=== PATIENT | male | born 1955 | race Caucasian/White ===

== ENCOUNTER 2019-07-23 10:52 | Emergency (ER) | payer MEDICARE ==
[2019-07-23] MEDS ORDERED: Dexamethasone 10 MG/ML SDV IM ONE (11:20)
--- NOTE | 2019-07-23 11:25 | EDM.PDOC ---
ED HPI GENERAL MEDICAL PROBLEM - General Chief Complaint: ENT Problem Stated Complaint: FB STUCK IN THROAT Time Seen by Provider: 07/23/19 11:03 Source of Information: Reports: Patient, RN Notes Reviewed History Limitations: Reports: No Limitations - History of Present Illness INITIAL COMMENTS - FREE TEXT/NARRATIVE: Patient is a 64-year-old male who presents to the ED for the evaluation of a foreign body sensation of the back of his throat. The patient states that he had beef tips last night, but does not remember any sort of choking incidences. He has not had this issue before ever. He states that he awoke at 2 AM this morning, and felt like he was gagging, or had this foreign body sensation in his throat since. He says when he coughs or breathes really hard, he can feel a mass or the sensation on the back of his tongue. Patient feels he is mildly nauseous, but has been able to drink fluids, he has not tried to eat anything since then. Patient states that he was able to take his pills this morning okay. His primary care provider is Dre Tovar. Patient denies any other sick-like symptoms, increased shortness of breath, cough, fever/chills, chest pain, vomiting or diarrhea. Throat Pain Score (Numeric/FACES): 1 - Related Data Allergies Allergy/AdvReac Type Severity Reaction Status Date / Time No Known Allergies Allergy Verified 07/23/19 11:01 Home Meds: Home Meds atenoloL [Atenolol] 25 mg PO DAILY 07/23/19 [History] atorvaSTATin [Lipitor] 20 mg PO DAILY 07/23/19 [History] glipiZIDE [Glipizide ER] 10 mg PO DAILY 07/23/19 [History] lisinopriL [Lisinopril] 20 mg PO DAILY 07/23/19 [History] metFORMIN [Glucophage XR] 1,000 mg PO BID 07/23/19 [History] Past Medical History Cardiovascular History: Reports: High Cholesterol, Hypertension Genitourinary History: Reports: Prostate Disorder Musculoskeletal History: Reports: Other (See Below) Other Musculoskeletal History: 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 ED EXAM, ENT - Physical Exam Exam: See Below Exam Limited By: No Limitations General Appearance: Alert, WD/WN, No Apparent Distress Eye Exam: Bilateral Eye: EOMI, Normal Inspection, PERRL Ears: Normal External Exam Nose: Normal Inspection Mouth/Throat: Normal Inspection, Normal Gums, Normal Lips, Normal Oropharynx, Normal Teeth, Uvular Edema (When the patient cleared his throat on examination, the uvula was sitting on the base of the tongue, and he states this was the mass or sensation he was feeling. The uvula does appear slightly swollen, or edematous.) Head: Atraumatic, Normocephalic Neck: Normal Inspection, Supple, Non-Tender, Full Range of Motion Respiratory/Chest: No Respiratory Distress, Lungs Clear, Normal Breath Sounds, No Accessory Muscle Use, Chest Non-Tender Cardiovascular: Normal Peripheral Pulses, Regular Rate, Rhythm, No Murmur GI/Abdominal: Normal Bowel Sounds, Soft, Non-Tender, No Distention, No Mass Extremities: Normal Inspection, Normal Capillary Refill Neurological: Alert, Oriented, Normal Cognition, No Motor/Sensory Deficits Psychiatric: Normal Affect, Normal Mood Skin: Warm, Dry, Intact, Normal Color, No Rash Course - Vital Signs Last Recorded V/S: Last Vital Signs Temp 97.7 F 07/23/19 11:02 Pulse 80 07/23/19 11:02 Resp 16 07/23/19 11:02 BP 157/104 H 07/23/19 11:02 Pulse Ox 98 07/23/19 11:02 - Orders/Labs/Meds Orders: Active Orders 24 hr Category Date Time Status Communication Order [RC] ROUTINE Care 07/23/19 11:37 Ordered Meds: Medications Discontinued Medications Generic Name Dose Route Start Last Admin Trade Name Bib PRN Reason Stop Dose Admin Dexamethasone 10 mg 07/23/19 11:20 07/23/19 11:37 Dexamethasone IM 07/23/19 11:21 10 mg ONETIME ONE Administration Diphenhydramine HCl 25 mg 07/23/19 12:13 07/23/19 12:16 Benadryl PO 07/23/19 12:14 25 mg ONETIME ONE Administration Famotidine 20 mg 07/23/19 12:18 07/23/19 12:58 Pepcid PO 07/23/19 12:19 20 mg ONETIME ONE Administration - Re-Assessments/Exams Free Text/Narrative Re-Assessment/Exam: 07/23/19 11:24 The patient presents to the ED for evaluation of a foreign body sensation in the back of his throat. Does appear that he has some uvular swelling or edema. Patient denied any sort of food allergies or other allergies, or eating anything that he does not normally eat. Will give the gentleman a 10 mg IM injection of dexamethasone, observe him in the ER, try to get him to eat something before he leaves, and likely discharge home with general recommendations. 07/23/19 12:17 Patient will be ordered lunch, he states that the uvula still feels quite swollen, did discuss options with Dr. Andino regarding treatment, and he recommends trying some Benadryl and famotidine to help relieve some the swelling initially. I have ordered the Benadryl and famotidine. Departure - Departure Time of Disposition: 13:41 Disposition: Home, Self-Care 01 Condition: Good Clinical Impression: Swollen uvula - Discharge Information *PRESCRIPTION DRUG MONITORING PROGRAM REVIEWED*: No *COPY OF PRESCRIPTION DRUG MONITORING REPORT IN PATIENT EMILIE: No Referrals: Dre Figueroa MD [Primary Care Provider] - Forms: ED Department Discharge Additional Instructions: You were evaluated in ER today regarding your foreign body sensation in the back of your throat. On physical examination, it was made apparent that this was your uvula, that appeared to be swollen, and when you cleared your throat it ended up sitting on the back your tongue causing you some nausea and the foreign body sensation. You were given a one-time IM injection of dexamethasone, oral Benadryl, and oral Pepcid. As these all can help relieve swelling. Over the weekend, you may want to stick to more of a soft type diet, to make sure that you can still swallow foods correctly, and create no further issues. You may try 600 mg ibuprofen every 6 hours as needed for further swelling relief , do not exceed 3200 mg in a 24-hour time span. If the Benadryl seems to help relieve some the swelling, you may also take 1 tablet of Benadryl every 4-6 hours as needed for swelling relief as well. Please return to the ER at any time if symptoms should change or worsen. Sepsis Event Note - Evaluation Sepsis Screening Result: No Definite Risk - Focused Exam Vital Signs: Vital Signs Temp Pulse Resp BP Pulse Ox 07/23/19 11:02 97.7 F 80 16 157/104 H 98 Date Exam was Performed: 07/23/19 Time Exam was Performed: 13:41 - My Orders Last 24 Hours: My Active Orders 07/23/19 11:37 Communication Order [RC] ROUTINE - Assessment/Plan Last 24 Hours: My Active Orders 07/23/19 11:37 Communication Order [RC] ROUTINE
[2019-07-23] MEDS ORDERED: diphenhydrAMINE 25 MG Cap PO ONE (12:13)
[2019-07-23] MEDS ORDERED: Famotidine 20 MG Tab PO ONE (12:18)
== END 2019-07-23 14:22 | disposition home or self-care (01) ==
LOC: JD.ED 10:52
DX: J39.2 Other diseases of pharynx (principal); E78.00 Pure hypercholesterolemia, unspecified; I10 Essential (primary) hypertension; E11.9 Type 2 diabetes mellitus without complications; Z79.84 Long term (current) use of oral hypoglycemic drugs; Z79.899 Other long term (current) drug therapy
CPT/HCPCS: 96372; 99283; A9270; J1100

== ENCOUNTER 2020-02-07 09:21 | Emergency (ER) | payer MEDICARE ==
[2020-02-07] MEDS ORDERED: Oxymetazoline 0.05% Nasal Spray 30 ML Bottle NASLF ONE (11:06)
--- NOTE | 2020-02-07 11:15 | EDM.PDOC ---
ED HPI GENERAL MEDICAL PROBLEM - General Chief Complaint: ENT Problem Stated Complaint: NOSE BLEED Time Seen by Provider: 02/07/20 11:02 Source of Information: Reports: Patient, RN Notes Reviewed History Limitations: Reports: No Limitations - History of Present Illness INITIAL COMMENTS - FREE TEXT/NARRATIVE: Patient is a 64 year old male presenting to the ER with c/o a left sided nose bleed that started around 0730 this morning. He states that the awoke with the feeling that something was running down his throat. It continued to bleed off and on until about 20 minutes prior to my exam. Pt takes a baby ASA daily, but is on no other blood thinners. - Related Data Allergies Allergy/AdvReac Type Severity Reaction Status Date / Time No Known Allergies Allergy Verified 02/07/20 09:30 Home Meds: Home Meds atenoloL [Atenolol] 25 mg PO DAILY 07/23/19 [History] glipiZIDE [Glipizide ER] 10 mg PO DAILY 07/23/19 [History] lisinopriL [Lisinopril] 20 mg PO DAILY 07/23/19 [History] metFORMIN [Glucophage XR] 1,000 mg PO BID 07/23/19 [History] Past Medical History Cardiovascular History: Reports: High Cholesterol, Hypertension Gastrointestinal History: Reports: Helicobacter Pylori Genitourinary History: Reports: Prostate Disorder Musculoskeletal History: Reports: Other (See Below) Other Musculoskeletal History: 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 ED EXAM, ENT - Physical Exam Exam: See Below Exam Limited By: No Limitations General Appearance: Alert, WD/WN, No Apparent Distress Nose: Normal Inspection, Normal Mucousa, Dried Blood. No: Active Bleeding Mouth/Throat: Normal Inspection, Normal Gums, Normal Lips, Normal Oropharynx, Normal Teeth Respiratory/Chest: No Respiratory Distress, Lungs Clear, Normal Breath Sounds, No Accessory Muscle Use, Chest Non-Tender Cardiovascular: Normal Peripheral Pulses, Regular Rate, Rhythm, No Edema, No Gallop, No JVD, No Murmur, No Rub GI/Abdominal: Normal Bowel Sounds, Soft, Non-Tender, No Organomegaly, No Distention, No Abnormal Bruit, No Mass Neurological: Alert, Oriented, CN II-XII Intact, Normal Cognition, Normal Gait, Normal Reflexes, No Motor/Sensory Deficits Psychiatric: Normal Affect, Normal Mood Skin: Warm, Dry, Intact, Normal Color, No Rash Course - Vital Signs Last Recorded V/S: Last Vital Signs Temp 97.3 F 02/07/20 09:27 Pulse 95 02/07/20 09:27 Resp 16 02/07/20 09:27 BP 195/103 H 02/07/20 09:27 Pulse Ox 95 02/07/20 09:27 - Orders/Labs/Meds Meds: Medications Discontinued Medications Generic Name Dose Route Start Last Admin Trade Name Bib PRN Reason Stop Dose Admin Oxymetazoline HCl 1 ml 02/07/20 11:06 02/07/20 11:14 Nasal Decongestant [place] NASLF 02/07/20 11:07 1 ml ONETIME ONE Administration - Re-Assessments/Exams Free Text/Narrative Re-Assessment/Exam: She is a 64-year-old male presenting to the emergency department with complaints of a left-sided nosebleed. States it began when he sat up this morning. States he felt something running down the back of his throat. Blood pressure on triage was initially elevated at 195/103, however it did come down to 145/94. Patient states he has not taken his blood pressure medications today. The time my exam, the nosebleed had stopped. I have ordered Afrin to be applied into the left nare. We will monitor him to ensure that bleeding does not resume. 02/07/20 11:44 Patient has had no further bleeding. We will discharge him home. Advised that if the bleeding should resume, he should instill a few sprays of Afrin leaned forward and hold pressure. He presented to make it stop he should return to ER. Recommend using a nasal moisturizer next few days. Talked about possibly using a humidifier as well. Discharge instructions as documented. Departure - Departure Time of Disposition: 11:45 Disposition: Home, Self-Care 01 Condition: Good Clinical Impression: Epistaxis - Discharge Information *PRESCRIPTION DRUG MONITORING PROGRAM REVIEWED*: No *COPY OF PRESCRIPTION DRUG MONITORING REPORT IN PATIENT EMILIE: No Instructions: Nosebleed, [id number] Referrals: Dre Figueroa MD [Primary Care Provider] - Forms: ED Department Discharge Additional Instructions: You were seen in the ER today for a left sided nose bleed. The bleeding did stop on it's own. Afrin was applied to the nare and no further bleeding was observed. Recommend that you purchase a nasal moisturizer such as [place] and apply it a couple times daily for the next few days. Use a humidifier in your sleeping quarters may also be beneficial. Take your blood pressure medications as previously prescribed. If the bleeding should start again, instill a few sprays of Afrin into the nostrol, lean forward and hold pressure. If the bleeding does not stop after 20 minutes, return to ER. Sepsis Event Note (ED) - Evaluation Sepsis Screening Result: No Definite Risk - Focused Exam Vital Signs: Vital Signs Temp Pulse Resp BP Pulse Ox 02/07/20 09:27 97.3 F 95 16 195/103 H 95
== END 2020-02-07 11:54 | disposition home or self-care (01) ==
LOC: JD.ED 09:21
DX: R04.0 Epistaxis (principal); I10 Essential (primary) hypertension; E11.9 Type 2 diabetes mellitus without complications; Z79.84 Long term (current) use of oral hypoglycemic drugs; Z79.899 Other long term (current) drug therapy
CPT/HCPCS: 99283; A9270; 99282

== ENCOUNTER 2024-04-16 14:42 | Emergency (ER) | payer MEDICARE, OTHER ==
[2024-04-16 15:50] LABS: BASOPHILS ABSOLUTE AUTO 0.1 K/mm3 (0.0-0.2); BASOPHILS PERCENT AUTO 0.4 % (0.0-1.0); EOSINOPHILS ABSOLUTE AUTO 0.2 K/mm3 (0.0-0.4); EOSINOPHILS PERCENT AUTO 1.1 % (0.0-6.0); HEMATOCRIT 33.9 % (42.0-52.0); HEMOGLOBIN 11.9 gm/dl (14.0-18.0); IMMATURE GRAN ABSOLUTE AUTO 0.13 K/mm3 (0.00-0.05); LYMPHOCYTES ABSOLUTE AUTO 1.7 K/mm3 (1.0-4.8); LYMPHOCYTES PERCENT AUTO 12.5 % (24.0-44.0); MEAN CORPUSCULAR HEMOGLOBIN 33.7 pg (28.0-32.0); MEAN CORPUSCULAR HGB CONC 35.1 g/dl (32.0-36.0); MEAN PLATELET VOLUME 9.5 fl (9.4-12.4); MONOCYTES ABSOLUTE AUTO 0.9 K/mm3 (0.0-0.8); MONOCYTES PERCENT AUTO 6.6 % (0.0-8.0); NEUTROPHILS ABSOLUTE AUTO 10.4 K/mm3 (1.8-7.7); NEUTROPHILS PERCENT AUTO 78.4 % (41.0-71.0); PLATELET COUNT,PLT 259 K/mm3 (150-400); RED BLOOD CELL COUNT 3.53 M/mm3 (4.52-5.90); WHITE BLOOD CELL COUNT,WBC 13.21 K/mm3 (3.9-11.3)
[2024-04-16] MEDS: Iopamidol 755 Mg/ML 100 ML Bottle IVPUSH ONE (15:52)
[2024-04-16 16:08] LABS: INR 0.93; PROTHROMBIN TIME 9.9 SECONDS (9.7-12.0)
[2024-04-16 16:09] LABS: PTT,PARTIAL THROMBOPLSTIN TIME 25.9 SECONDS (21.7-31.4)
[2024-04-16 16:13] LABS: A/G RATIO 1.1 (1-2); ANION GAP 15.8 (5-15); BILIRUBIN TOTAL 0.4 mg/dL (0.2-1.0); POTASSIUM,K 4.8 mEq/L (3.5-5.1); PROTEIN TOTAL,TP 7.6 g/dl (6.4-8.2)
[2024-04-16 16:19] LABS: EST CRCL DRUG DOSING (CG) 33.88 mL/min
[2024-04-16] MEDS: Sodium Chloride 0.9% 100 ML IV SCH (16:45)
[2024-04-16] MEDS: Ondansetron 4 MG/2 ML SDV IVPUSH ONE (17:57)
[2024-04-16] MEDS: Meclizine 25 MG Tab PO ONE (17:58)
[2024-04-16] MEDS: Sodium Chloride 0.9% 10 ML Syringe FLUSH PRN (17:59)
[2024-04-16] MEDS: Sodium Chloride 0.9% 1,000 ML IV ONE (18:04)
== END 2024-04-16 19:25 | disposition home or self-care (01) ==
LOC: JD.ED 14:42
DX: R42 Dizziness and giddiness (principal); I10 Essential (primary) hypertension; E78.00 Pure hypercholesterolemia, unspecified; E11.9 Type 2 diabetes mellitus without complications; Z79.51 Long term (current) use of inhaled steroids; Z79.899 Other long term (current) drug therapy; Z79.82 Long term (current) use of aspirin; Z79.4 Long term (current) use of insulin
CPT/HCPCS: 36415; 70450; 70450-26; 70496; 70496-26; 70498; 70498-26; 80053; 82947; 84484; 85025; 85610; 85730; 93005; 96361; 96374; 99284-25; A9270-GY; J2405; J7030; Q9967